=== PATIENT | male | born 1995 | race Caucasian/White ===

== ENCOUNTER 2022-03-17 03:13 | Emergency (ER) | payer SELFPAY ==
[~2022-03-17] VITALS: Ht 170.2 cm; Wt 70.5 kg
[2022-03-17 03:20] VITALS: BP 121/79
[2022-03-17 04:48] LABS: BASOPHILS % 0.6 % (0.0-2.0); EOSINOPHILS % 4.8 % (0.0-5.0); HEMATOCRIT. 41.2 % (42.0-52.0); HEMOGLOBIN. 13.8 g/dL (14.0-18.0); LYMPHOCYTES % 39.9 % (20.0-50.0); MEAN CORPUSCULAR HEMOGLOBIN 29.8 pg (28.0-32.0); MEAN CORPUSCULAR VOLUME 89.4 fL (80.0-94.0); MEAN PLATELET VOLUME 8.3 fl (7.4-10.4); MONOCYTES % 6.1 % (2.0-8.0); NEUTROPHILS % 48.6 % (40.0-76.0); PLATELET 248 x1000/uL (130-400); RED BLOOD CELL COUNT 4.61 mill/uL (4.7-6.1); RED CELL DISTRIBUTION WIDTH 13.5 % (11.6-14.6)
[2022-03-17 04:51] LABS: CLARITY URINE CLEAR (CLEAR); COLOR URINE YELLOW (YELLOW); KETONES URINE NEGATIVE (NEGATIVE); LEUKOCYTE ESTERASE URINE NEGATIVE (NEGATIVE); NITRITE URINE NEGATIVE (NEGATIVE); OCCULT BLOOD URINE NEGATIVE (NEGATIVE); PROTEIN URINE NEGATIVE (NEGATIVE); SPECIFIC GRAVITY URINE 1.022 (1.005-1.030); UROBILINOGEN URINE 0.2 E.U./dL (0.2-1.0)
[2022-03-17 04:57] LABS: CHLORIDE 107 mEq/L (98-107)
[2022-03-17] MEDS ORDERED: MAGNESIUM/ALUMINUM HYDROXIDE/SIMETHICONE 30ML UDC PO ONE (05:15)
[2022-03-17] MEDS ORDERED: FAMOTIDINE 20MG TABLET PO ONE (05:15)
[2022-03-17] MEDS ORDERED: MAG355OR21 MT (05:43)
[2022-03-17] MEDS ORDERED: FAMO-134 MT (05:43)
[2022-03-17] MEDS: VISCOUS LIDOCAINE 2% 15 ML UDC MM PRN ×2 (05:59→06:00)
== END 2022-03-17 06:06 | disposition home or self-care (01) ==
LOC: ER 03:13
DX: R10.13 Epigastric pain (principal); Z90.49 Acquired absence of other specified parts of digestive tract
CPT/HCPCS: 36415; 80053; 81003; 85025; 99283

== ENCOUNTER 2024-05-29 13:17 | Emergency (ER) | payer SELFPAY ==
[~2024-05-29] VITALS: Ht 172.7 cm; Wt 78.0 kg
[~2024-05-29 13:17] MED LIST: FAMO-134 MT; MAG355OR21 MT
[2024-05-29 13:22] VITALS: TEMP 98.8; O2SAT 100
[2024-05-29 13:25] VITALS: O2SAT 98
[2024-05-29] MEDS: MAGNESIUM/ALUMINUM HYDROXIDE/SIMETHICONE 30ML UDC PO STA (14:42)
[2024-05-29] MEDS ORDERED: DICYCLOMINE 10 MG/5 ML ORAL SYR PO STA (14:42)
[2024-05-29 14:58] LABS: BASOPHILS % 0.6 % (0.0-2.0); EOSINOPHILS % 1.6 % (0.0-5.0); HEMATOCRIT. 45.9 % (42.0-52.0); HEMOGLOBIN. 14.9 g/dL (14.0-18.0); LYMPHOCYTES % 29.6 % (20.0-50.0); MEAN CORPUSCULAR HGB CONC 32.4 g/dL (31.0-37.0); MEAN CORPUSCULAR VOLUME 92.6 fL (80.0-94.0); MEAN PLATELET VOLUME 9.1 fl (7.4-10.4); MONOCYTES % 6.5 % (2.0-8.0); NEUTROPHILS % 61.7 % (40.0-76.0); PLATELET 249 x1000/uL (130-400); RED BLOOD CELL COUNT 4.96 mill/uL (4.7-6.1); RED CELL DISTRIBUTION WIDTH 13.7 % (11.6-14.6); WHITE BLOOD COUNT 7.5 x1000/uL (4.5-11.0)
[2024-05-29 15:02] LABS: CHLORIDE 106 mEq/L (98-107); POTASSIUM 3.6 mEq/L (3.5-5.1); SODIUM 140 mEq/L (136-145)
[2024-05-29 15:03] LABS: CALCIUM 9.8 mg/dL (8.7-10.4); CARBON DIOXIDE 28 mEq/L (21-32)
[2024-05-29 15:08] LABS: GLUCOSE 92 mg/dL (70-105); UREA NITROGEN BLOOD 12 mg/dL (9-23)
[2024-05-29 15:10] LABS: ALANINE AMINOTRANSFERASE 21 IU/L (10-49); ALBUMIN 4.7 g/dL (3.2-4.8); ASPARTATE AMINOTRANSFERASE 24 IU/L (<34); BILIRUBIN DIRECT 0.1 mg/dL (<=3.0)
[2024-05-29 15:11] LABS: BILIRUBIN TOTAL 0.4 mg/dL (0.1-1.0); PROTEIN TOTAL 7.4 g/dL (6.0-8.3)
[2024-05-29 15:12] VITALS: BP 122/65; PULSE 107; RESP 16
[2024-05-29] MEDS: ONDANSETRON 4MG ODT PO STA (15:12)
[2024-05-29] MEDS: DICYCLOMINE HCL 10MG CAPSULE PO STA (15:12)
[2024-05-29] MEDS: KETOROLAC 30MG/ML VIAL IM ONE (15:12)
[2024-05-29] MEDS ORDERED: FAMO-135 MT (16:14)
== END 2024-05-29 16:34 | disposition home or self-care (01) ==
LOC: ER 13:17
DX: K29.00 Acute gastritis without bleeding (principal); Z90.49 Acquired absence of other specified parts of digestive tract
CPT/HCPCS: 80076; 80048; 83690; 85025; 36415; 76700; 96372; 99285; Q0162; J1885; Z7610